=== PATIENT | male | born 1960 | race Caucasian/White ===

== ENCOUNTER 2018-02-16 10:10 | Day surgery (SDC) | payer BC ==
[2018-02-15 14:24] VITALS: BMI 25.0
[2018-02-16] MEDS ORDERED: Fentanyl 250 MCG/5 ML VIAL ONE (12:01)
[2018-02-16] MEDS ORDERED: Ferric Subsulfate 8 ML BOT ONE (12:41)
[2018-02-16] MEDS ORDERED: Morphine 4 MG/ML VIAL ONE (14:16)
[2018-02-16] MEDS ORDERED: Dexamethasone 20 MG/5 ML VIAL ONE (14:37)
[2018-02-16] MEDS ORDERED: Succinylcholine Chloride 20 MG/ML 10 ml SYRINGE FS ONE (14:37)
[2018-02-16] MEDS ORDERED: Ondansetron HCl/PF 4 MG/2 ML Vial ONE (14:37)
[2018-02-16] MEDS ORDERED: Lidocaine 1% PF 5 ML VIAL ONE (14:37)
[2018-02-16] MEDS ORDERED: PROPOFOL 200 MG/20 ML VIAL ONE (14:37)
[2018-02-16] MEDS ORDERED: Fentanyl 100 MCG/2 ML VIAL ONE (15:05)
[2018-02-16] MEDS ORDERED: hydrALAZINE 20 MG/ML VIAL ONE ×2 (15:06→16:06)
--- NOTE | 2018-02-17 10:02 | OP ---
PREOPERATIVE DIAGNOSES: 1. Chronic adenotonsillitis. 2. Adenotonsillar hypertrophy. POSTOPERATIVE DIAGNOSES: 1. Chronic adenotonsillitis. 2. Adenotonsillar hypertrophy. PROCEDURE: Tonsillectomy and adenoidectomy. SURGEON: Kishor Bennett M.D. ESTIMATED BLOOD LOSS: 0 mL. COMPLICATIONS: None. ANESTHESIA: GETA. PROCEDURE IN DETAIL: After consent was obtained, the patient was identified, brought to the operating room, and placed on the operating table in the supine position. General endotracheal anesthesia and intravenous access was obtained and we proceeded with positioning the patient for oropharyngeal surge ry. Oropharyngeal exposure was obtained with a Viet-Deion mouth gag after a head drape was placed an d secured with a towel clip. The Viet-Deion mouth gag was then suspended from the Diaz tray and marvin taty elevation was achieved with a red rubber catheter. The right tonsil was addressed first. We used a curved Allis to grasp the tonsil and retract it medially as an anterior pillar incision was made. The retrotonsillar fascial plane was then established and blunt dissection was performed with the suc tion cautery. Blood vessels were anticipated, identified, and cauterized as they were encountered. Ul timately, dissection was carried to the posterior tonsillar pillar mucosa which was incised hemostati chuyita, as well as the base of tongue connection. The tonsil was then passed off as a specimen and ble eding points within the tonsillar bed were cauterized under direct visualization. We subsequently tur marian our attention to the contralateral side, where using a similar technique, a near identical proced ure was performed. Again, the tonsil was grasped and retracted medially with a curved Allis. The retr otonsillar fascial plane was established and while the anterior pillar was retracted medially, the he mostatic blunt dissection of the tonsil with a suction cautery was performed with blood vessels antic ipated, identified, and cauterized as they were encountered. Again, dissection continued to the base of tongue and posterior tonsillar pillar mucosa which was incised in a hemostatic fashion. The tonsi llar beds were then carefully inspected and bleeding points were identified and cauterized with a suc tion cautery. After this portion of the procedure, hemostasis was completely obtained. Under direct m irror visualization, we visualized the adenoid pad. Under direct mirror visualization, we removed the bulk of the adenoid tissue with the adenoid curette. We then packed the nasopharynx for an appropria te period of time with Jose-Synephrine saturated tonsillar sponges. After a period of observation, we removed the pack. Under indirect mirror visualization, we obtained hemostasis and vaporization of res idual adenoid tissue with electrocautery. The patient's oral cavity was copiously irrigated with iced saline and subsequently suctioned. After completion of the procedure, the nasal cavity and oropharyn x were irrigated and suctioned as were the gastric contents. The patient was then awakened and transf erred to the recovery room where the patient remained in stable condition prior to discharge to [facility]
== END 2018-02-16 16:15 | disposition home or self-care (01) ==
LOC: SDC 10:10
PROVIDERS: ATTEND Otolaryngology Plastic Surgery within the Head & Neck
PROC: 0C5PXZZ Destruction of Tonsils, External Approach (ICD-10-PCS; principal; 2018-02-16)
PROC: 0C5QXZZ Destruction of Adenoids, External Approach (ICD-10-PCS; principal; 2018-02-16)
DX: J35.03 Chronic tonsillitis and adenoiditis (principal); E78.00 Pure hypercholesterolemia, unspecified; K21.9 Gastro-esophageal reflux disease without esophagitis; Z87.891 Personal history of nicotine dependence; Z88.5 Allergy status to narcotic agent; Z79.899 Other long term (current) drug therapy
CPT/HCPCS: 88304; 93005; 93010; 96374; 96375; J0131; J0360; J1100; J2001; J2270; J2405; J2704; J3010

== ENCOUNTER 2022-06-01 08:43 | Outpatient (CLI) | payer BC ==
[2022-06-01 09:44] LABS: Hemoglobin 16.7 g/dL (13.5-17.5); Mean Corpuscular HGB CONC 34.9 g/dL (32.0-36.0); Mean Corpuscular Hemoglobin 31.7 pg (27.0-33.0); Mean Corpuscular Volume 90.7 fl (81.2-95.1); Mean Platelet Volume 10.6 fl (7.4-10.4); Platelet Count 283 10x3/uL (150-450); RBC Distribution Width 12.7 % (11.5-14.5); Red Blood Cell (RBC) Count 5.27 10x6/uL (4.32-5.72); White Blood Cell (WBC) Count 7.2 10x3/uL (3.5-10.5)
[2022-06-01 10:00] LABS: Anion Gap 15 mmol/L (10-20); BUN (Urea Nitrogen) 17 mg/dL (8.4-25.7); Calc. Creatinine Clearance 0 mL/min (70-130); Calcium 9.7 mg/dL (7.8-10.44); Carbon Dioxide 27 mmol/L (23-31); Chloride 104 mmol/L (98-107); Estimated GFR 86; Glucose 92 mg/dL (80-115); Potassium 4.3 mmol/L (3.5-5.1); Sodium 142 mmol/L (136-145)
[2022-06-01 10:13] LABS: PTT 25.9 sec (22.0-33.0); Prothrombin Time 10.9 sec (9.5-12.1)
== END 2022-06-01 08:44 | disposition home or self-care (01) ==
LOC: LABBT 08:43
PROVIDERS: ATTEND Surgery
DX: Z01.818 Encounter for other preprocedural examination (principal); M51.16 Intervertebral disc disorders with radiculopathy, lumbar region; Z20.822 Contact with and (suspected) exposure to COVID-19
CPT/HCPCS: 80048; 85027; 85610; 85730; 87811; 93005; 93010

== ENCOUNTER 2022-06-04 07:42 | Observation (INO) | payer BC ==
[2022-06-04] MEDS ORDERED: fentaNYL Citrate/PF 100 MCG/2 ML SYRINGE ONE (11:27)
[2022-06-04] MEDS ORDERED: CEFAZOLIN 2 GM VIAL ONE (11:35)
[2022-06-04] MEDS ORDERED: Sodium Chloride 0.9% 100 ML ONE (11:35)
[2022-06-04] MEDS ORDERED: PHENYLEPHRINE-NS 100 MCG/ML 10 ML SYRINGE ONE (11:43)
[2022-06-04] MEDS ORDERED: Glycopyrrolate 0.2 MG/ML 5 ML SYRINGE ONE (11:43)
[2022-06-04] MEDS ORDERED: NEOSTIGMINE 3 MG/3 ML SYR 3 MG/3 ML SYRINGE ONE (11:43)
[2022-06-04] MEDS ORDERED: Rocuronium Bromide 10 MG/ML (10ML VIAL) ONE (11:43)
[2022-06-04] MEDS ORDERED: Dexamethasone 20 MG/5 ML VIAL ONE (11:43)
[2022-06-04] MEDS ORDERED: Ondansetron PF 4 MG/2 ML Vial ONE (11:43)
[2022-06-04] MEDS ORDERED: PROPOFOL 200 MG/20 ML VIAL ONE (11:43)
[2022-06-04] MEDS ORDERED: Thrombin 5000 UNITS/5 ML VIAL ONE ×2 (12:36→13:11)
[2022-06-04] MEDS ORDERED: HYDROmorphone 2 MG/ML VIAL ONE (13:34)
[2022-06-04] MEDS ORDERED: Promethazine HCl 25 MG/ML VIAL IVPB PRN (13:41)
[2022-06-04] MEDS ORDERED: Promethazine HCl 25 MG/ML VIAL IM PRN (13:41)
[2022-06-04] MEDS ORDERED: Ondansetron HCl/PF 4 MG/2 ML Vial IVP PRN (13:41)
[2022-06-04] MEDS ORDERED: HYDROmorphone 2 MG/ML VIAL SLOW IVP PRN (13:41)
[2022-06-04] MEDS ORDERED: Morphine Sulfate 2 MG/ML SYRINGE SLOW IVP PRN (13:41)
[2022-06-04] MEDS ORDERED: PACU-Morphine 4MG/ML VIAL SLOW IVP PRN (13:41)
[2022-06-04] MEDS ORDERED: Acetaminophen 325 MG TAB PO PRN (14:04)
[2022-06-04] MEDS ORDERED: Morphine 2 MG/ML VIAL SLOW IVP PRN (14:04)
[2022-06-04] MEDS ORDERED: HYDROcodone/Acetaminophen 10/325 mg Tablet PO PRN (14:04)
[2022-06-04] MEDS ORDERED: Ondansetron PF 4 MG/2 ML Vial IVP PRN (14:04)
[2022-06-04] MEDS ORDERED: HYDROcodone/Acetaminophen 5/325 mg Tablet PO PRN (14:07)
[2022-06-04] MEDS ORDERED: hydrALAZINE 20 MG/ML VIAL SLOW IVP PRN (14:08)
[2022-06-04] MEDS ORDERED: HYDROmorphone 0.5 MG/0.5 ML SYRINGE ONE (14:34)
[2022-06-04] MEDS ORDERED: Fentanyl 100 MCG/2 ML VIAL ONE (14:43)
[2022-06-04] MEDS ORDERED: Morphine 4 MG/ML VIAL ONE (15:04)
[2022-06-04] MEDS ORDERED: Morphine 2 MG/ML VIAL ONE (15:18)
[2022-06-04] MEDS ORDERED: oxyCODONE 5 MG TAB PO PRN (16:13)
[2022-06-04] MEDS ORDERED: diphenhydrAMINE 25 MG CAP PO PRN (16:13)
[2022-06-04] MEDS: Acetaminophen 500 MG TAB PO SCH ×2 (16:23→20:00)
[2022-06-04] MEDS: Gabapentin 300 MG CAP PO SCH ×2 (16:23→19:59)
[2022-06-04] MEDS: Sodium Chloride 0.9% 1,000 ML IV SCH (16:24)
[2022-06-04 18:02] VITALS: BMI 21.5
[2022-06-04] MEDS: Cyclobenzaprine 10 MG TAB PO PRN (18:38)
[2022-06-04] MEDS: CEFAZOLIN 2 GM in Sodium Chloride 0.9% 100 ML IVPB SCH (20:02)
[2022-06-04] MEDS ORDERED: Morphine 4 MG/ML VIAL SLOW IVP PRN (20:10)
[2022-06-04] MEDS ORDERED: Atorvastatin Calcium 20 MG TAB PO SCH (21:00)
[2022-06-05 01:03] LABS: #Lymphocytes 1.4 thou/uL (1.20-3.40); #Monocytes 1.2 thou/uL (0.11-0.59); #Neutrophils 14.7 thou/uL (1.40-6.50); %Basophils 0.1 % (0.0-1.0); %Eosinophils 0.1 % (0.0-10.0); %Lymphocytes 7.8 % (21.0-51.0); %Monocytes 6.7 % (0.0-10.0); %Neutrophils 85.2 % (42.0-75.0); Hemoglobin 15.7 g/dL (14.0-18.0); Mean Corpuscular HGB CONC 32.5 g/dL (32.0-36.0); Mean Corpuscular Hemoglobin 31.3 pg (27.0-31.0); Mean Corpuscular Volume 96.3 fL (78.0-98.0); Mean Platelet Volume 8.3 fL (7.4-10.4); Platelet Count 261 thou/uL (130-400); RBC Distribution Width 12.2 % (11.5-14.5); Red Blood Cell (RBC) Count 5.03 mill/uL (4.70-6.10); White Blood Cell (WBC) Count 17.3 thou/uL (4.8-10.8)
[2022-06-05] MEDS: Cyclobenzaprine 10 MG TAB PO PRN ×2 (01:12→10:25)
[2022-06-05 01:19] LABS: ALT (SGPT) 32 U/L (8-55); AST (SGOT) 24 U/L (5-34); Albumin 4.3 g/dL (3.4-4.8); Alkaline Phosphatase 52 U/L (40-110); Anion Gap 21 mmol/L (10-20); BUN (Urea Nitrogen) 16 mg/dL (8.4-25.7); Bilirubin, Total 0.8 mg/dL (0.2-1.2); Calc. Creatinine Clearance 69 mL/min (70-130); Calcium 9.3 mg/dL (7.8-10.44); Carbon Dioxide 18 mmol/L (23-31); Chloride 104 mmol/L (98-107); Estimated GFR 73; Globulin 2.4 g/dL (2.4-3.5); Glucose 163 mg/dL (80-115); Potassium 3.9 mmol/L (3.5-5.1); Protein, Total 6.7 g/dL (5.8-8.1); Sodium 139 mmol/L (136-145)
[2022-06-05 01:23] LABS: Troponin I 0.014 ng/mL (< 0.028)
[2022-06-05] MEDS ORDERED: Famotidine 20 MG TAB PO SCH (02:15)
[2022-06-05] MEDS: CEFAZOLIN 2 GM in Sodium Chloride 0.9% 100 ML IVPB SCH (03:58)
[2022-06-05] MEDS: Sodium Chloride 0.9% 1,000 ML IV SCH (04:01)
[2022-06-05 08:27] VITALS: BP 122/73; TEMP 98.4
[2022-06-05] MEDS: Gabapentin 300 MG CAP PO SCH (08:37)
[2022-06-05] MEDS: Acetaminophen 500 MG TAB PO SCH (08:37)
== END 2022-06-05 13:01 | disposition home or self-care (01) ==
LOC: SDC 07:42 → T4-A 16:03
PROVIDERS: ADMIT Surgery; ATTEND Surgery
PROC: 0SB20ZZ Excision of Lumbar Vertebral Disc, Open Approach (ICD-10-PCS; principal; 2022-06-04)
PROC: 01NB0ZZ Release Lumbar Nerve, Open Approach (ICD-10-PCS; 2022-06-04)
DX: M51.16 Intervertebral disc disorders with radiculopathy, lumbar region (principal); M48.061 Spinal stenosis, lumbar region without neurogenic claudication; E78.5 Hyperlipidemia, unspecified; Z87.891 Personal history of nicotine dependence; Z79.899 Other long term (current) drug therapy; Z88.5 Allergy status to narcotic agent
CPT/HCPCS: 36416; 51702; 71045; 76000; 80053; 84484; 85025; 93005; 93010; 96365; 96366; 96375; 96376; G0378; J0690; J1100; J1170; J2270; J2405; J2704; J3010; J3370; J3490; J7050